=== PATIENT | female | born 1970 | race Two or more races ===

== ENCOUNTER 2024-10-16 15:03 | Emergency (ER) | payer BC, MEDICAID, OTHER ==
[~2024-10-16] VITALS: Ht 154.9 cm; Wt 84.3 kg
[~2024-10-16 15:03] MED LIST: HYDR-4383 PO
[2024-10-16 15:47] LABS: EOSINOPHILS % (AUTO) 0.3 % (0-6); HEMOGLOBIN 15.5 g/dl (12.0-16.0); LYMPHOCYTES # (AUTO) 1.7 X10'3 (1.1-4.8); LYMPHOCYTES % (AUTO) 35.7 % (21-51); MEAN CORPUSCULAR HEMOGLOBIN 30.6 PG (27.0-31.0); MEAN CORPUSCULAR HGB CONC 33.8 g/dL (33.0-36.5); MEAN CORPUSCULAR VOLUME 90.4 FL (78-98); MEAN PLATELET VOLUME 9.2 FL (7.4-10.4); MONOCYTES # (AUTO) 0.5 X10'3 (0-0.9); NEUTROPHILS # (AUTO) 2.5 X10'3 (1.8-7.7); PLATELET COUNT 273 X10'3 (140-440); RED BLOOD COUNT 5.08 X10'6 (4.20-5.60); RED CELL DISTRIBUTION WIDTH 14.1 % (11.5-14.5); WHITE BLOOD COUNT 4.9 X10'3 (4.5-11.0)
[2024-10-16 16:00] LABS: ALANINE AMINOTRANSFERASE 32 U/L (12-78); ALBUMIN 3.6 G/DL (3.4-5.0); ALBUMIN/GLOBULIN RATIO 0.7 (1.1-1.5); ALKALINE PHOSPHATASE 135 IU/L (46-116); ANION GAP 11 (8-16); ASPARTATE AMINO TRANSFERASE 30 U/L (10-37); BILIRUBIN,TOTAL 0.3 MG/DL (0.1-1.0); BLOOD UREA NITROGEN 20 MG/DL (7-18); CALCIUM 8.8 MG/DL (8.5-10.1); CHLORIDE 103 MMOL/L (99-107); CREATININE 0.77 MG/DL (0.40-0.90); GLUCOSE 118 MG/DL (70-104); LIPASE 23 U/L (16-77); POTASSIUM 3.2 MMOL/L (3.5-5.1); SODIUM 140 MMOL/L (135-145); TOTAL CARBON DIOXIDE 26.3 MMOL/L (24-32); TOTAL PROTEIN 8.8 G/DL (6.4-8.2); eCRCL 64 ML/MIN; eGFR 78 ML/MIN
[2024-10-16 16:06] LABS: URINE HCG NEGATIVE (NEG)
[2024-10-16 16:08] LABS: BILIRUBIN,URINE SMALL (Neg); CLARITY,URINE SLIGHTLY CLOUDY (Clear); COLOR,URINE YELLOW (Yellow); GLUCOSE, URINE NEGATIVE (Neg); KETONES,URINE TRACE mg/dl (Neg); LEUKOCYTE ESTERASE ,URINE NEGATIVE (Neg); NITRITES, URINE NEGATIVE (Neg); OCCULT BLOOD,URINE NEGATIVE (Neg); PH,URINE 6.5 (4.8-8.0); PROTEIN,URINE 30 mg/dl (Neg); UROBILINOGEN,URINE 0.2 E.U/dL (0.2-1.0)
[2024-10-16 16:11] LABS: UA COLLECTION TYPE CLN CATCH MIDSTREAM
[2024-10-16 16:13] LABS: BACTERIA,URINE FEW /HPF (Neg); MUCUS STRANDS FEW /LPF (Neg); RBC,URINE 0-2 /HPF (0-2); SQUAMOUS EPITHELIAL CELL,UR MANY /LPF (FEW)
--- NOTE | 2024-10-16 20:46 | Physician Documentation ---
History of Present Illness Chief Complaint: Abdominal Pain w/vomiting Stated Complaint: DIARRHEA/HEADACHE Time Seen by MD: 20:01 Primary Medical Doctor: ESTEFANI MCCAIN HPI 54-YEAR-OLD FEMALE PRESENTS WITH THREE DAYS OF NAUSEA VOMITING DIARRHEA AND A HEADACHE. DENIES ANY RECENT FOOD POISONING. DENIES ANY MARIJUANA USAGE. STATES HER PAIN IS PRIMARILY EPIGASTRIC. DENIES ANY FEVERS WELL. Medication Reconciliation Allergies: Coded Allergies: No Known Allergies (Unverified , 11/10/15) Scheduled Loperamide Hcl (Loperamide), 2 CAP PO Q6H Scheduled PRN Hydrocodone/Acetaminophen ([place] 5-325 Tablet), 1 TAB PO Q4H PRN for moderate pain 4-6 Past Medical History Past Surgical History: noncontributory Patient History: (DM Type 2) Diabetes mellitus type 2 MOTHER, Age: 65, Onset:Unknown Depression MOTHER, Age: 65, Onset:Unknown FH: hypertension MOTHER, Age: 65, Onset:Unknown Alcohol Use: None Lives In: Home Review of Systems All Other Systems at this time: Reviewed and Negative ROS As stated above in the HPI, otherwise all systems are reviewed and negative. Physical Exam Vital Signs: Temperature: 98.2, Source: Oral, Heart Rate: 74, Respiratory Rate: 18, BP: 110/78, Pulse Oximetry: 97, Weight: 84.300 Oxygen Flow Rate: 0 Physical Exam General: Alert, no apparent distress. Respiratory: Lungs clear, no respiratory distress. Cardiovascular: Regular rate and rhythm, no murmurs. Gastrointestinal: Soft, HER MID EPIGASTRIC REGION NEGATIVE A , GARCIA'S SIGN Neurologic: Oriented x4. Psychiatric: Normal mood and affect. Skin: Normal color, warm and dry. No edema, no ecchymosis. Progress Results/Orders Results/Orders Completed Orders - LUCA PALOMO NP Normal Saline 1000ml (Sodium Chloride 10 (10/16/24 20:15) Ondansetron Inj. (Zofran 4mg/2ml Vial) (10/16/24 20:15) Loperamide Capsule (Imodium Capsule) (10/16/24 20:15) Vital Signs 10/16/24 10/16/24 10/16/24 10/16/24 15:21 18:49 20:23 20:26 Temp 98.3 98.2 98.2 Pulse 80 84 74 Resp 16 16 12 18 B/P (MAP) 121/61 113/63 (80) 110/78 (89) Pulse Ox 97 97 O2 Flow Rate 0 0 0 Laboratory Tests Test 10/16/24 15:24 10/16/24 15:35 Urine Specimen Description Cln catch midstream Urine Color Yellow Urine Clarity Slightly cloudy Urine pH 6.5 Urine Specific Cut Off 1.025 Urine Protein 30 H Urine Glucose (UA) Negative Urine Ketones Trace H Urine Occult Blood Negative Urine Nitrite Negative Urine Bilirubin Small Urine Urobilinogen 0.2 Urine Leukocyte Esterase Negative Urine RBC 0-2 Urine WBC 5-10 H Urine Squamous Epithelial Cells Many Urine Bacteria Few Urine Mucus Few Urine Culture Indicated Rejected for culture Volume Urine Centrifuged 10 ml Urine HCG, Qualitative Negative Urine Comment White Blood Count 4.9 Red Blood Count 5.08 Hemoglobin 15.5 Hematocrit 46.0 H Mean Corpuscular Volume 90.4 Mean Corpuscular Hemoglobin 30.6 Mean Corpuscular Hemoglobin Concent 33.8 Red Cell Distribution Width 14.1 Platelet Count 273 Mean Platelet Volume 9.2 Neutrophils (%) (Auto) 52.0 Lymphocytes (%) (Auto) 35.7 Monocytes (%) (Auto) 11.0 Eosinophils (%) (Auto) 0.3 Basophils (%) (Auto) 1.0 Neutrophils # (Auto) 2.5 Lymphocytes # (Auto) 1.7 Monocytes # (Auto) 0.5 Eosinophils # (Auto) 0.0 Basophils # (Auto) 0.0 CBC Comment Sodium Level 140 Potassium Level 3.2 L Chloride Level 103 Carbon Dioxide Level 26.3 Anion Gap 11 Blood Urea Nitrogen 20 H Creatinine 0.77 Estimated GFR/1.73 m2 78 BUN/Creatinine Ratio 26.0 H Glucose Level 118 H Calcium Level 8.8 Total Bilirubin 0.3 Aspartate Amino Transf (AST/SGOT) 30 Alanine Aminotransferase (ALT/SGPT) 32 Alkaline Phosphatase 135 H Total Protein 8.8 H Albumin 3.6 Globulin 5.2 H Albumin/Globulin Ratio 0.7 L Lipase 23 Chemistry Comments Medical Decision Making Findings CURRENTLY SUSPECTING VIRAL GASTROENTERITIS.. GAVE PATIENT FLUIDS ZOFRAN AND LOPERAMIDE TO HELP WITH DIARRHEA. HER LABORATORY RESULTS DID NOT SHOW ANY SIGNS OF SERIOUS INFECTION. REPORTED OVERALL IMPROVED SYMPTOMS ONCE RECEIVING MEDICATIONS. WE ARE GOING TO DISCHARGE HER WITH THE ADVICE TO MAINTAIN ADEQUATE FLUID INTAKE AND REST Differential Dx:Considerations: Include: AAA, -Complete, - Incomplete, -Inevitable, -Missed, -Threatened, Abruptio placentae, Angina/ND, Aortic dissection, Appendicitis, Bowel obstruction, Cholangitis, Cholelithasis, Constipation, Diverticular disease, Esophageal rupture, Esophagitis, Gastritis/PUD, Gastroenteritis, GI hemorrhage, Hernia, Hepatitis, Inflammatory BD, Ischemic bowel, Ovarian cyst/torsion, Pancreatitis, PID, Porphyria, Trauma, intraabdominal, Urinary obstruction, Urinary tract infection, Urolithiasis, Other Departure Disposition: 01 HOME / SELF CARE / HOMELESS Impression: Primary Impression: Acute gastroenteritis Condition: Stable Discharge Instructions: Viral Gastroenteritis, Adult, [id number] Referrals: NO PRIMARY CARE PROVIDER (PCP) Prescriptions ONDANSETRON ODT 4mg tablet (ONDANSETRON ODT) 4 Mg Tab.rapdis 1 TAB PO Q6H PRN PRN for nausea/vomiting for 4 Days, #16 TAB 0 Refills Prov: LUCA PALOMO NP 10/16/24 Loperamide Hcl (Loperamide) 2 Mg Capsule 2 CAP PO Q6H for loose stool for 5 Days, #40 CAP 0 Refills Prov: LUCA PALOMO NP 10/16/24 Education Educated: Patient Educated regarding: diagnosis Signature Scribe Signature: F Attestation: The note accurately reflects work and decisions made by me.Luca Velásquez NP 20:52 LUCA PALOMO NP October 16, 2024 20:46
[2024-10-16] MEDS ORDERED: LOPE2CAP PO (20:50)
[2024-10-16] MEDS: ondansetron/PF 4mg/2ml inj IV ONE (20:55)
[2024-10-16] MEDS: normal saline 1000ML IV soln IVB ONE (20:55)
[2024-10-16] MEDS: loperamide 2mg capsule PO ONE (20:55)
[2024-10-16] MEDS ORDERED: ONDA-243 PO (20:57)
[2024-10-16 23:07] VITALS: BP 120/87; PULSE 87; RESP 16; TEMP 98.2; O2SAT 100
== END 2024-10-16 23:09 | disposition home or self-care (01) ==
LOC: ER 15:03
DX: K52.9 Noninfective gastroenteritis and colitis, unspecified (principal); E11.9 Type 2 diabetes mellitus without complications
CPT/HCPCS: 36415; 80053; 81001; 81025; 83690; 85025; 96361; 96374; 99284; J2405; J7030